=== PATIENT | male | born 1975 | race Hispanic/Latino ===

== ENCOUNTER 2018-09-05 01:23 | Emergency (ER) | payer MEDICAID ==
[2018-09-05] MEDS ORDERED: Sodium Chloride 0.9% 1,000 ML IV ONE ×2 (01:30→02:24)
--- NOTE | 2018-09-05 01:34 | C.PDOC ---
History Of Present Illness Pt found unresponsive on the street. 2 mg IV narcan given with good results. Pt states he did heroin tonight. Denies any suicidal or homicidal ideation. Time Seen by Provider: 09/05/18 01:31 Chief Complaint (Nursing): Substance Abuse History Per: EMS History/Exam Limitations: intoxication Onset/Duration Of Symptoms: Unknown Current Symptoms Are (Timing): Better Suicide/Self Injury Attempted (Context): None Modifying Factor(s): Narcotics Severity: Moderate Pain Scale Rating Of: 4 Involuntary Hold By: None Recent travel outside of the [place]: No Additional History Per: EMS Past Medical History Reviewed: Historical Data, Nursing Documentation, Vital Signs Vital Signs: Last Vital Signs Temp 97.5 F L 09/05/18 01:24 Pulse 114 H 09/05/18 01:24 Resp 12 09/05/18 01:24 BP 108/65 09/05/18 01:24 Pulse Ox 95 09/05/18 01:24 - Medical History PMH: Seizures Family History: States: No Known Family Hx - Social History Hx Alcohol Use: No Hx Substance Use: Yes Review Of Systems Review Of Systems: ROS cannot be obtained secondary to pt's inabilty to answer questions. Physical Exam - Physical Exam Appears: Non-toxic, No Acute Distress Skin: Warm, Dry Head: Normacephalic, Abrasion (old on forehead) Eye(s): bilateral: Normal Inspection (now, after narcan) Oral Mucosa: Moist Lips: Normal Appearing Neck: Supple Chest: Symmetrical Cardiovascular: Rhythm Regular Respiratory: No Rales, Rhonchi (few), No Wheezing Gastrointestinal/Abdominal: Soft, No Tenderness Back: Normal Inspection Extremity: Normal ROM Extremity: Bilateral: Atraumatic Neurological/Psych: Oriented x3, Slow To Respond With Command Gait: Unable To Assess ED Course And Treatment O2 Sat by Pulse Oximetry: 95 Pulse Ox Interpretation: Normal Reevaluation Time: 05:26 Reassessment Condition: Improved Critical Care Time - Critical Care Note Total Time (in mins): 30 Documented critical care: time excludes all time spent performing seperately billable procedures. Disposition Counseled Patient/Family Regarding: Studies Performed, Diagnosis, Need For Followup - Disposition Referrals: [facility] [Outside] Disposition: HOME/ ROUTINE Disposition Time: 01:31 Condition: FAIR Instructions: Narcotic Overdose (DC) Forms: [employer] (Guamanian) - Clinical Impression Clinical Impression: Drug abuse, Heroin overdose
[2018-09-05] MEDS ORDERED: Naloxone 0.4 mg/ml Inj (Adult) IVP ONE (02:23)
[2018-09-05] MEDS ORDERED: Sodium Chloride 0.9% 2,000 ML ONE (02:26)
[2018-09-05 05:44] VITALS: BP 104/64; PULSE 69; RESP 20; TEMP 98.3; O2SAT 97
== END 2018-09-05 05:54 | disposition home or self-care (01) ==
LOC: EDBD 01:23 → C.ER 01:23 → MERGE 01:23 → C.ER 05:54
DX: T40.1X1A Poisoning by heroin, accidental (unintentional), initial encounter (principal); F11.10 Opioid abuse, uncomplicated
CPT/HCPCS: 82948; 96361; 96374; 99285; J2310; J7030